=== PATIENT | male | born 2000 | race Caucasian/White ===

== ENCOUNTER 2024-03-16 12:43 | Emergency (ER) | payer OTHER ==
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
[2024-03-16 14:42] VITALS: BP 140/76; PULSE 87; RESP 16; TEMP 98.8
== END 2024-03-16 15:37 | disposition home or self-care (01) ==
LOC: EC 12:43
DX: R51.9 Headache, unspecified (principal); V89.2XXA Person injured in unspecified motor-vehicle accident, traffic, initial encounter; Y93.89 Activity, other specified
CPT/HCPCS: 70450; 72125; 99284